=== PATIENT | female | born 1965 | race Caucasian/White ===

== ENCOUNTER → 2017-08-29 14:23 | Outpatient (CLI) | payer OTHER, SELFPAY ==
[2017-08-29 15:51] LABS: Thyroid Stimulating Hormone 1.81 uIU/mL (0.47-4.68)
== END ==
PROVIDERS: PCP Family Medicine; Visit Provider Internal Medicine
DX: E03.9 Hypothyroidism, unspecified (principal)
CPT/HCPCS: 36415; 84443

== ENCOUNTER 2019-09-17 19:36 | Emergency (ER) | payer OTHER, SELFPAY ==
[2019-09-17 19:40] VITALS: BP 134/100; PULSE 88; RESP 22; TEMP 36.2; O2SAT 100; BMI 22.3
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
[2019-09-17 21:09] LABS: Add Manual Diff / Slide Review NO; Basophils Absolute Auto 100 /uL (0-100); Basophils Percent Auto 1.4 % (0-2); Eosinophils Absolute Auto 100 /uL (0-450); Hematocrit 43.2 % (36-46); Hemoglobin 14.7 g/dL (12.0-16.0); Lymphocytes Absolute Auto 2400 /uL (1100-4500); Lymphocytes Percent Auto 38.7 % (25-40); Mean Corpuscular HGB Conc 34.1 % (30-36); Mean Corpuscular Hemoglobin 32.2 PG (26-34); Mean Corpuscular Volume 94.5 fL (80-100); Monocytes Absolute Auto 600 /uL (0-900); Monocytes Percent Auto 9.5 % (3-14); Neutrophils Absolute Auto 3000 /uL (1500-7000); Neutrophils Percent Auto 48.4 % (50-75); Platelet Count 270 X10^3/uL (150-400); Red Blood Cell Count 4.57 X10^6/uL (4.0-5.2); Red Cell Distribution Width 13.3 % (11.6-14.8); White Blood Cell Count 6.1 X10^3/uL (4.5-11.0)
[2019-09-17 21:25] VITALS: BP 130/88; PULSE 82; RESP 19; O2SAT 100
[2019-09-17 21:25] LABS: Alanine Aminotransferase 18 IU/L (<35); Albumin 4.6 g/dL (3.5-5.0); Albumin Globulin Ratio 1.5 (1.0-2.8); Alkaline Phosphatase 68 U/L (38-126); Aspartate Aminotransferase 31 IU/L (14-36); BUN Creatinine Ratio 22.2 (6-22); Bilirubin Total 0.6 mg/dL (0.2-1.3); Blood Urea Nitrogen 16 mg/dL (7-17); Calcium 9.6 mg/dL (8.4-10.2); Carbon Dioxide 28 mmol/L (22-32); Chloride 104 mmol/L (98-107); Estimated Glomerular Filt Rate > 60.0 mL/min (>60); Ethanol (ETOH) < 10 mg/dL; Glucose 90 mg/dL (70-100); HEMOLYSIS 44 (0-50); Sodium 139 mmol/L (137-145); Total Protein 7.6 g/dL (6.3-8.2)
[2019-09-17] MEDS: LORazepam 0.5 MG TABLET 1 MG PO (21:30)
[2019-09-17 21:43] LABS: UR Morphine/Opiate cutoff 300 Negative (Negative); Ur Creatinine Normal (Normal); Ur Specific Gravity Normal (Normal); Urine Amphetamines Negative (Negative); Urine Barbiturates Negative (Negative); Urine Benzodiazepines Positive (Negative); Urine Cocaine Negative (Negative); Urine MDMA Negative (Negative); Urine Methadone Negative (Negative); Urine Methamphetamines Negative (Negative); Urine Oxycodone Negative (Negative); Urine Phencyclidine Negative (Negative); Urine Tetrahydrocannabinol Negative (Negative); Urine Tricyclic Antidepressant Negative (Negative); Urine pH Normal (Normal)
[2019-09-17 21:56] LABS: Thyroid Stimulating Hormone 2.83 uIU/mL (0.47-4.68)
[2019-09-17 22:31] VITALS: BP 124/73; PULSE 62; RESP 16; O2SAT 96
[2019-09-18 07:38] VITALS: BP 116/61; PULSE 77; RESP 16; O2SAT 98
--- NOTE | 2019-09-18 12:23 | PC.NURSE ---
CUT OFF SAWYER SHINGLE MILL at bedside
--- NOTE | 2019-09-18 13:50 | PC.NURSE ---
Patient taking 0.25mg Alprazolam out of her own pill bottle. Ok per MD. Reports feeling more anxious after telling the whole story to WIRELESS COMMUNICATIONS ENGINEER. Water provided for patient. Friend Elinor at bedside.
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
[2019-09-18 15:11] VITALS: PULSE 75; O2SAT 97
[2019-09-18 15:12] VITALS: BP 167/105; PULSE 85; O2SAT 97
--- NOTE | 2019-09-18 15:17 | PC.NURSE ---
The patients friend came out to the nursing station saying that the patient is now feeling different and weird. She asked that we check her blood pressure. I went to check her vital signs and the patient had become emotional and upset, stating she had taken one of her medications, (alprazolam; which she has taken on and off for several years) a half hour before this episode. Patients blood pressure was elevated 167/105. Patient was very upset at this, saying she wanted to know what is in this bottle as she held up her prescription for Alprazolam. She stated that she knows that we all think she is crazy, and states she wants to figure out why this is happening to her. I assured her I would talk to the nurse, who went in to assess her shortly after I left.
--- NOTE | 2019-09-18 15:45 | PC.NURSE ---
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 States she does not feel right I know this sounds crazy but is there any way you can test this medication to tell me that this is for sure the medication that it says it is Patient was dispensed 10 tabs on 09/10/19 she has taken medications approx 8 times prior to today and has not felt off except today and two days ago. Patient feels there has been a shift in something in her because she has depended on this medication far more frequently than in the past. Patient is tearful. Friend Elinor at bedside. Patient repeatedly states i am not myself, I am in tune with my body normally Patient anxious, tearful. Reassured patient she is safe here and we are working on a plan to help her. Encouraged her continue to keep us posted on how she is feeling.
--- NOTE | 2019-09-18 16:57 | CM.SWNOTE ---
PLASTIC AND RECONSTRUCTIVE SURGEON note- UPDATE PLASTIC AND RECONSTRUCTIVE SURGEON received call from patient's Agustin. Agustin informed PLASTIC AND RECONSTRUCTIVE SURGEON that patient had been under significant stress for the past two years, and that in the past year she has experienced significant workplace stress. Agustin informed PLASTIC AND RECONSTRUCTIVE SURGEON that over the past two weeks, patient's presentation of stress has started to include a focus on technology, with a specific focus on her cell phone, and states that there has been an uncertainty in her mind[...]a conspiracy with regards to her cell phone. Agustin explained that on the drive from [employer] to [employer], patient would whisper into Agsutin's ear because she was worried that the technology in their car was listening to her, and that she would make notes in a notebook, but cover what she was writing with her hand because she felt the technology in her car was watching her. Agustin and PLASTIC AND RECONSTRUCTIVE SURGEON discussed next steps. PLASTIC AND RECONSTRUCTIVE SURGEON informs Agustin that PLASTIC AND RECONSTRUCTIVE SURGEON will present options to patient, and it this point it is recommendation of PLASTIC AND RECONSTRUCTIVE SURGEON that patient attend inpatient treatment for stabilization. Agustin indicates understanding, and requests follow up. PLASTIC AND RECONSTRUCTIVE SURGEON enters room. Patient is in room with friend Elinor. Patient describes taking her anti-anxiety medication and experiencing an increase in anxiety. Patient expresses worry that her medications have been tampered with, and acknowledges while stating this that this thought is irrational. PLASTIC AND RECONSTRUCTIVE SURGEON informs patient that he spoke with counselor and , and validates patient's experience of significant stress. Patient begins to escalate and explains that she is justice focused and that she believes this whole thing is engineered so he wins [he is identified as someone named Ed] and everyone thinks I'm crazy. PLASTIC AND RECONSTRUCTIVE SURGEON discusses patient's current experience of paranoia and patient indicates that it has escalated in the past two weeks specifically. Patient asks if it is normal for someone experiencing stress and paranoia to feel strongly that they are experiencing things when they're alone that other's aren't witnessing them. PLASTIC AND RECONSTRUCTIVE SURGEON discusses with patient that the feelings she is experiencing often do feel very real. PLASTIC AND RECONSTRUCTIVE SURGEON and patient next steps. Patient informs PLASTIC AND RECONSTRUCTIVE SURGEON that she will throw [her] phone in the ocean, and [she'll] be fine. Patient asks PLASTIC AND RECONSTRUCTIVE SURGEON for clinical recommendation. PLASTIC AND RECONSTRUCTIVE SURGEON informs patient that while throwing the phone in the ocean will likely be therapeutic, it is unlikely to address some of her stressors in the senior living. Patient states I agree. PLASTIC AND RECONSTRUCTIVE SURGEON discusses inpatient hospitalization, and patient expresses relief and states that sounds great. PLASTIC AND RECONSTRUCTIVE SURGEON and patient discuss logistics of this, and PLASTIC AND RECONSTRUCTIVE SURGEON exits room. PLASTIC AND RECONSTRUCTIVE SURGEON provides update to Dr. Verde and CASEY Carty. Pl: PLASTIC AND RECONSTRUCTIVE SURGEON to seek inpatient bed for patient and plan for transfer tonight. PLASTIC AND RECONSTRUCTIVE SURGEON will provide counselor and Agustin with update once bed has been secured. AYLEEN Mckinney
--- NOTE | 2019-09-18 16:58 | PC.NURSE ---
Per Collin ABBASI patient agreeable to voluntary inpatient hospitalization. VIDEO GAME DESIGNER working on voluntary placement for patient.
--- NOTE | 2019-09-18 17:51 | PC.NURSE ---
pt set up with towels for shower in bathroom. Pt agreed to being safe while in the bathroom alone and to keep the door unlocked. Pt is now back in her room.
--- NOTE | 2019-09-18 17:54 | CM.SWNOTE ---
KETTLE GIRL note KETTLE GIRL calls [facility] seeking inpatient bed for patient and speaks with Steve. KETTLE GIRL completes phone interview and Steve requests that KETTLE GIRL send over clinicals. Roughly 5 minutes after initial phone interview, Steve calls KETTLE GIRL back and informs KETTLE GIRL that patient has been accepted at [facility]. Details listed below: Accepting provider: Dr. Garret Floyd. Nurse to Nurse [phone]. Intake contact: Steve. Check in time: 2230 on 09/17. KETTLE GIRL provides update to patient, Dr. Verde and [facility]. [facility] to coordinate transportation. KETTLE GIRL contacts patient's counselor and and provides update. Pl: Patient to transfer to [facility] for inpatient behavioral health stabilization. AYLEEN Mckinney
--- NOTE | 2019-09-18 18:02 | PC.NURSE ---
Patient took a shower states she feels much better. Up in hallway on phone speaking to her mother I am already feeling so much better. My friends took the things that were causing me a paranoid episode. I promise you mom I am ok. I know no matter what happens there were things going on with my phone, but I will get a new one Remains calm and hopeful on phone with mother.
--- NOTE | 2019-09-18 18:27 | PC.NURSE ---
Food tray given to pt
[2019-09-18 19:15] VITALS: O2SAT 98
[2019-09-18 19:16] VITALS: BP 158/87
[2019-09-18 19:17] VITALS: PULSE 71
--- NOTE | 2019-09-18 19:30 | PC.NURSE ---
Report called to Mckayla PEÑA at [facility].
== END 2019-09-18 19:38 ==
PROVIDERS: Emergency Medicine; Emergency Provider Emergency Medicine; PCP Family Medicine
DX: F22 Delusional disorders (principal); F29 Unspecified psychosis not due to a substance or known physiological condition
CPT/HCPCS: 36415; 80053; 80305; 80320; 81003; 84443; 85025; 93005; 99284

== ENCOUNTER → 2020-10-29 13:39 | Outpatient (CLI) | payer OTHER, SELFPAY ==
[2020-10-29 14:51] LABS: Alanine Aminotransferase 24 IU/L (<35); Albumin 4.3 g/dL (3.5-5.0); Albumin Globulin Ratio 1.5 (1.0-2.8); Alkaline Phosphatase 84 U/L (38-126); Aspartate Aminotransferase 34 IU/L (14-36); BUN Creatinine Ratio 27.9 (6-22); Bilirubin Total 0.4 mg/dL (0.2-1.3); Blood Urea Nitrogen 17 mg/dL (7-17); Calcium 9.1 mg/dL (8.4-10.2); Carbon Dioxide 30 mmol/L (22-32); Chloride 100 mmol/L (98-107); Estimated Glomerular Filt Rate > 60.0 mL/min (>60); Globulin 2.8 g/dL (1.7-4.1); Glucose 81 mg/dL (70-100); HEMOLYSIS < 15 (0-50); Potassium 4.2 mmol/L (3.4-5.1); Sodium 134 mmol/L (137-145); Total Protein 7.1 g/dL (6.3-8.2)
[2020-10-29 16:13] LABS: TSH w/ Reflex to FT4 8.54 uIU/mL (0.47-4.68)
[2020-10-29 16:40] LABS: Free T4, Direct Thyroxine 0.67 ng/dL (0.78-2.19)
== END ==
PROVIDERS: PCP Family Medicine; Referring Provider Family Medicine; Visit Provider Family Medicine
DX: E03.9 Hypothyroidism, unspecified (principal); I10 Essential (primary) hypertension
CPT/HCPCS: 36415; 80053; 84439; 84443

== ENCOUNTER → 2020-11-08 10:15 | Outpatient (CLI) | payer OTHER, SELFPAY ==
--- NOTE | 2020-11-08 | DI.US.S_ITS ---
PROCEDURE: US PELVIC COMPLETE INDICATIONS: PMB TECHNIQUE: Real-time scanning was performed of the pelvic organs, with image documentation. Additional endovaginal scanning was necessary due to incomplete visualization of the adnexal and endometrial structures by transabdominal scanning. COMPARISON: None. FINDINGS: Uterus: Uterus is normal in size at 8.4 x 3.9 x 5.6 cm. The endometrium measures 7.2 mm in combined thickness. Ovaries: Normal right ovary at 3.1 x 1.4 x 1.9 cm and there is a simple right ovarian cyst measuring 16 mm. Left ovary not visualized. Other: No pathologic free abdominal or pelvic fluid. IMPRESSION: 1. Thickened endometrial complex measuring 7.2 mm. Endometrial biopsy is recommended to exclude underlying neoplastic process. 2. 16 mm right simple ovarian cyst. Dictated by: Hank Schwarz [facility] Interpreted: Erick Key MD on 11/09/2020 at 10:09 Transcribed by: BRIDGER on 11/09/2020 at 10:10 Approved by: Erick Key M.D. on 11/09/2020 at 10:50
== END ==
PROVIDERS: PCP Family Medicine; Referring Provider Family Medicine; Visit Provider Family Medicine
DX: N95.0 Postmenopausal bleeding (principal); N83.291 Other ovarian cyst, right side; R93.89 Abnormal findings on diagnostic imaging of other specified body structures
CPT/HCPCS: 76830; 76856

== ENCOUNTER → 2020-12-17 10:20 | Outpatient (CLI) | payer OTHER, SELFPAY ==
[2020-12-17 12:24] LABS: TSH w/ Reflex to FT4 0.53 uIU/mL (0.47-4.68)
== END ==
PROVIDERS: PCP Family Medicine; Referring Provider Family Medicine; Visit Provider Family Medicine
DX: E03.9 Hypothyroidism, unspecified (principal)
CPT/HCPCS: 36415; 84443

== ENCOUNTER → 2021-01-24 15:04 | Outpatient (CLI) | payer OTHER, SELFPAY ==
--- NOTE | 2021-02-17 16:58 | P.HOLT.S_ITS ---
Customer Care Specialist Report Referral & Results Date Patient Seen: 01/24/21 Requesting provider: Daily Alejandro Indication: Cardiomegaly Duration of monitoring (days): 14 Diary information: There were 20 patient triggered events and 9 patient diary entries Patient triggered events were variably associated with (within 45 seconds) sinus rhythm, PACs and SVT Patient diary events were variably associated with (within 45 seconds) sinus rhythm and PVCs Data: Minimum heart rate identified was 40 beats per minute at 06:44 on 01/27/2021 Maximum sinus heart rate was 146 beats per minute at 13:07 on 01/30/2021 Maximum overall heart rate was 154 beats per minute at 05:49 on 02/07/2021 during a 6 beat run of SVT/atrial tachycardia Less than 1% of identified beats were ventricular or supraventricular ectopic in origin, which would classify them as rare. There were 2 runs of SVT/atrial tachycardia with the fastest beat above also the longest 6 beats per minute Impression: 14 day vehicle monitor technician demonstrating very rare, very brief runs of SVT that may be symptomatic based on patient events No other serious dysrhythmia identified on this study
== END ==
PROVIDERS: PCP Family Medicine; Referring Provider Family Medicine; Visit Provider Family Medicine
DX: I51.7 Cardiomegaly (principal); Q24.4 Congenital subaortic stenosis
CPT/HCPCS: 36415; 84443; 93246; 93248

== ENCOUNTER 2023-06-21 06:48 | Emergency (ER) | payer OTHER, SELFPAY ==
[2023-06-21 06:50] VITALS: BP 141/84; PULSE 121; RESP 22; TEMP 36.8; O2SAT 97; BMI 24.7
--- NOTE | 2023-06-21 06:54 | ED_ITS ---
HPI - Psych <Anastasia Verde, - Last Filed: 06/22/23 07:03> General Chief Complaint: Psychiatric Symptoms Stated Complaint: psychotic episode Time Seen by Provider: 06/21/23 06:49 History of Present Illness HPI Narrative: Patient 58-year-old female with history of paranoid delusions depression presents today again with paranoia. She currently lives in [place] but lose used to live here. She called a friend emergently a couple days ago wanting to come up and visit. The friend picked her up from [place] last night at 8:30 a.m.. This morning patient felt very unsafe friend tried to calm her good and went to go get a cup of coffee when the patient went through a window and started running down the street. Patient says that she feels like someone is drugging her dog. She reports that over the last couple of weeks she has felt her emotions go up and down. She feels like somebody might be following her. She denies any suicidal or homicidal ideations. She does not feel like she needs a mental health hospitalization she just feels like she can stay safe with a friend. She does not want her called. She previously used to see Dr. Carvalho, she was hospitalized in 2019. Medications include venlafaxine, risperidone, levothyroxine After reviewing records from psychiatry symptoms seem similar to previous. She has had history of ongoing paranoia and depression. I spoke with friend serenity who reports that patient had an episode the airplane last night she got very upset patient recognized that this was abnormal behavior but was unable to control it. She confirms that patient went through the window this morning, she was unsure what to do police were called. Related Data Previous Rx's Medication Instructions Recorded lisinopril 20 mg tablet 20 mg PO QDAY #30 tabs 10/29/20 levothyroxine 88 mcg tablet 88 mcg PO DAILY #90 tabs 12/29/20 acupuncture #1 ea 01/26/21 massage therapy #1 ea 01/26/21 risperidone 1 mg tablet 2 mg (2 x 1 mg) PO BEDTIME #60 tabs 05/19/21 venlafaxine 225 mg tablet,extended 225 mg PO DAILY #30 tabs 05/19/21 release 24 hr Allergies Allergy/AdvReac Type Severity Reaction Status Date / Time No Known Drug Allergies Allergy Unknown Verified 02/28/21 08:16 Patient History <Anastasia Verde DO - Last Filed: 06/22/23 07:03> Medical History (Updated 06/21/23 @ 20:41 by Shobha Marley MD) 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 Dysthymia Irregular menstrual cycle Postmenopausal bleeding Delusions Hypertension (1997) Hypothyroidism (~1999) ADHD (attention deficit hyperactivity disorder) (2005) Anxiety (1997) Depression (1997) Surgical History Anesthesia Status post arthroscopy (1990) Family History Brother Age: 60 PTSD (post-traumatic stress disorder) History of heart disease Hypertension Mental health problem OCD (obsessive compulsive disorder) Father Age: 86 Cancer Hypertension High cholesterol History of heart disease Hyperlipidemia COPD (chronic obstructive pulmonary disease) Kidney failure Mother Age: 84 Hypertension High cholesterol History of heart disease Mental health problem Brother Intestinal disease Hypertension Mental health problem Sister Hypertension Multiple sclerosis Social History Smoking Status: Never smoker Smoking Status: Never smoker alcohol intake frequency: holidays/special occasions only Substance Use Type: does not use Exam <Anastasia Verde DO - Last Filed: 06/22/23 07:03> Initial Vital Signs Initial Vital Signs: Vital Signs Temperature 98.2 F 06/21/23 06:50 Pulse Rate 121 H 06/21/23 06:50 Respiratory Rate 22 06/21/23 06:50 Blood Pressure 141/84 H 06/21/23 06:50 Pulse Oximetry 97 06/21/23 06:50 Oxygen Delivery Method Room Air 06/21/23 06:50 GENERAL: Well-appearing, well-nourished and in no acute distress. CARDIOVASCULAR: peripheral pulses in tact, cap refill <2 sec RESPIRATORY: No respiratory distress, speaks in full sentences without difficulty [ABDOMEN: Soft, nontender, no guarding or rebound] EXTREMITIES: Normal range of motion, no clubbing or edema. Neurovascularly intact NEUROLOGICAL: Cranial nerves II through XII grossly intact. Normal gait and speech. SKIN: Warm, dry, no petechiae, no rashes or lesions. Psych Appearance: well kempt Speech and Movement: pressured speech Mood: paranoid Affect: sad Attitude: cooperative Thought Process: flight of ideas, illogical, loose association and perseverating Thought Content: hallucinations, no homicidality and suicidality Judgment: poor <Shobha Marley MD - Last Filed: 06/22/23 02:36> Initial Vital Signs Initial Vital Signs: Vital Signs Temperature 98.2 F 06/21/23 06:50 Pulse Rate 121 H 06/21/23 06:50 Respiratory Rate 22 06/21/23 06:50 Blood Pressure 141/84 H 06/21/23 06:50 Pulse Oximetry 97 06/21/23 06:50 Oxygen Delivery Method Room Air 06/21/23 06:50 Course <Anastasia Verde DO - Last Filed: 06/22/23 07:03> Orders Ordered: Discontinued Medications Diphtheria/Tetanus/Acell Pertussis (Tet,Diph,Pertuss(Acell),Vac/Pf 0.5 Ml Syringe) 0.5 ml IM .ONCE ONE Stop: 06/21/23 06:50 Last Admin: 06/21/23 17:20 Dose: Not Given Documented By: MPO Lisinopril (Lisinopril 20 Mg Tablet) 20 mg PO NOW ONE Stop: 06/21/23 16:43 Last Admin: 06/21/23 17:07 Dose: 20 mg Documented By: MPO Lorazepam (Lorazepam 0.5 Mg Tablet) 1 mg PO NOW ONE Stop: 06/21/23 07:12 Last Admin: 06/21/23 07:26 Dose: 1 mg Documented By: MPO Risperidone (Risperidone 1 Mg Tablet) 1 mg PO DAILY [facility] Risperidone (Risperidone 1 Mg Tablet) 1 mg PO DAILY FARHAT Last Admin: 06/21/23 17:10 Dose: 1 mg Documented By: MPO Vital Signs Vital signs: Vital Signs - 8 hr 06/21/23 20:09 Pulse Rate 71 Respiratory Rate 20 Blood Pressure 117/77 Pulse Oximetry 97 Oxygen Delivery Method Room Air <Shobha Marley MD - Last Filed: 06/22/23 02:36> Orders Ordered: Discontinued Medications Diphtheria/Tetanus/Acell Pertussis (Tet,Diph,Pertuss(Acell),Vac/Pf 0.5 Ml Syringe) 0.5 ml IM .ONCE ONE Stop: 06/21/23 06:50 Last Admin: 06/21/23 17:20 Dose: Not Given Documented By: MPO Lisinopril (Lisinopril 20 Mg Tablet) 20 mg PO NOW ONE Stop: 06/21/23 16:43 Last Admin: 06/21/23 17:07 Dose: 20 mg Documented By: LUCÍA Lorazepam (Lorazepam 0.5 Mg Tablet) 1 mg PO NOW ONE Stop: 06/21/23 07:12 Last Admin: 06/21/23 07:26 Dose: 1 mg Documented By: LUCÍA Risperidone (Risperidone 1 Mg Tablet) 1 mg PO DAILY FARHAT Risperidone (Risperidone 1 Mg Tablet) 1 mg PO DAILY FARHAT Last Admin: 06/21/23 17:10 Dose: 1 mg Documented By: LUCÍA Vital Signs Vital signs: Vital Signs - 8 hr 06/21/23 20:09 Pulse Rate 71 Respiratory Rate 20 Blood Pressure 117/77 Pulse Oximetry 97 Oxygen Delivery Method Room Air MDM - Psych <Anastasia Verde DO - Last Filed: 06/22/23 07:03> Lab Data 06/21/23 07:15 06/21/23 07:15 Labs: Lab Results 06/21/23 06/21/23 06/21/23 Range/Units 07:15 07:30 08:14 WBC 5.8 (4.5-11.0) X10^3/uL RBC 4.39 (4.0-5.2) X10^6/uL Hgb 13.8 (12.0-16.0) g/dL Hct 41.4 (36-46) % MCV 94.2 (80-100) fL MCH 31.5 (26-34) PG MCHC 33.4 (30-36) % RDW 13.1 (11.6-14.8) % Plt Count 242 (150-400) X10^3/uL Neut % (Auto) 63.1 (50-75) % Lymph % (Auto) 23.3 L (25-40) % [place] % (Auto) 10.0 (3-14) % Eos % (Auto) 2.8 (2-4) % Baso % (Auto) 0.8 (0-2) % Neut # (Auto) 3600 (6384-4659) /uL Lymph # (Auto) 1300 (7717-6605) /uL [place] # (Auto) 600 (0-900) /uL Eos # (Auto) 200 (0-450) /uL Baso # (Auto) 0 (0-100) /uL Sodium 138 (137-145) mmol/L Potassium 3.4 (3.4-5.1) mmol/L Chloride 105 (98-107) mmol/L Carbon Dioxide 26 (22-32) mmol/L BUN 14 (7-17) mg/dL Creatinine 0.78 (0.52-1.04) mg/dL Estimated GFR > 60 (>60) mL/min BUN/Creatinine Ratio 17.9 (6-22) Glucose 188 H (70-100) mg/dL Calcium 9.3 (8.4-10.2) mg/dL Total Bilirubin 0.9 (0.2-1.3) mg/dL AST 63 H (14-36) IU/L ALT 53 H (<35) IU/L Alkaline Phosphatase 81 (38-126) U/L Ammonia < 9 L (9-30) umol/L Total Protein 7.3 (6.3-8.2) g/dL Albumin 4.3 (3.5-5.0) g/dL Globulin 3.0 (1.7-4.1) g/dL Albumin/Globulin Ratio 1.4 (1.0-2.8) TSH 1.60 (0.47-4.68) uIU/mL Urine Color Yellow Urine Appearance Sl cloudy Urine pH 7.0 (4.5-8.0) Ur Specific [place] 1.020 (1.000-1.035) Urine Protein Negative (Negative) Urine Glucose (UA) Negative (Negative) g/dL Urine Ketones Negative (NEGATIVE) Urine Occult Blood Trace-intact (Negative) Urine Nitrate Negative (Negative) Urine Bilirubin Negative (NEGATIVE) Urine Urobilinogen 0.2 (0.2) E.U./dL Ur Leukocyte Esterase Negative (NEGATIVE) Urine RBC None seen (0-5/HPF) Urine WBC None seen (0-5/HPF) Ur Squamous Epith Cells 0-1 /hpf (0-5/HPF) Amorphous Sediment 1+ Urine Bacteria None seen (None) Ur Culture Indicated? Cult not indicated Vol Urine Centrifuged 10ml (spun) Salicylates < 1.0 (<20) mg/dL U Opiates 300ng/mL cut Negative (Negative) Ur Oxycodone Screen Negative (Negative) Urine Methadone Screen Negative (Negative) Acetaminophen < 10 (10-30) ug/mL Ur Barbiturates Screen Negative (Negative) U Tricyclic Antidepress Negative (Negative) Ur Phencyclidine Scrn Negative (Negative) Ur Amphetamines Screen Negative (Negative) U Methamphetamines Scrn Negative (Negative) Ur MDMA Scrn (Ecstasy) Negative (Negative) U Benzodiazepines Scrn Negative (Negative) Urine Cocaine Screen Negative (Negative) U Marijuana (THC) Screen Negative (Negative) Urine Specific [place] (Normal) Ethyl Alcohol < 10 ( - 10) mg/dL Ur Creatinine (Normal) SARS-CoV-2 (PCR) Negative (Negative) 06/21/23 Range/Units 08:14 WBC (4.5-11.0) X10^3/uL RBC (4.0-5.2) X10^6/uL Hgb (12.0-16.0) g/dL Hct (36-46) % MCV (80-100) fL MCH (26-34) PG MCHC (30-36) % RDW (11.6-14.8) % Plt Count (150-400) X10^3/uL Neut % (Auto) (50-75) % Lymph % (Auto) (25-40) % [place] % (Auto) (3-14) % Eos % (Auto) (2-4) % Baso % (Auto) (0-2) % Neut # (Auto) (1680-7164) /uL Lymph # (Auto) (9500-4665) /uL [place] # (Auto) (0-900) /uL Eos # (Auto) (0-450) /uL Baso # (Auto) (0-100) /uL Sodium (137-145) mmol/L Potassium (3.4-5.1) mmol/L Chloride (98-107) mmol/L Carbon Dioxide (22-32) mmol/L BUN (7-17) mg/dL Creatinine (0.52-1.04) mg/dL Estimated GFR (>60) mL/min BUN/Creatinine Ratio (6-22) Glucose (70-100) mg/dL Calcium (8.4-10.2) mg/dL Total Bilirubin (0.2-1.3) mg/dL AST (14-36) IU/L ALT (<35) IU/L Alkaline Phosphatase (38-126) U/L Ammonia (9-30) umol/L Total Protein (6.3-8.2) g/dL Albumin (3.5-5.0) g/dL Globulin (1.7-4.1) g/dL Albumin/Globulin Ratio (1.0-2.8) TSH (0.47-4.68) uIU/mL Urine Color Urine Appearance Urine pH Normal (4.5-8.0) Ur Specific [place] (1.000-1.035) Urine Protein (Negative) Urine Glucose (UA) (Negative) g/dL Urine Ketones (NEGATIVE) Urine Occult Blood (Negative) Urine Nitrate (Negative) Urine Bilirubin (NEGATIVE) Urine Urobilinogen (0.2) E.U./dL Ur Leukocyte Esterase (NEGATIVE) Urine RBC (0-5/HPF) Urine WBC (0-5/HPF) Ur Squamous Epith Cells (0-5/HPF) Amorphous Sediment Urine Bacteria (None) Ur Culture Indicated? Vol Urine Centrifuged Salicylates (<20) mg/dL U Opiates 300ng/mL cut (Negative) Ur Oxycodone Screen (Negative) Urine Methadone Screen (Negative) Acetaminophen (10-30) ug/mL Ur Barbiturates Screen (Negative) U Tricyclic Antidepress (Negative) Ur Phencyclidine Scrn (Negative) Ur Amphetamines Screen (Negative) U Methamphetamines Scrn (Negative) Ur MDMA Scrn (Ecstasy) (Negative) U Benzodiazepines Scrn (Negative) Urine Cocaine Screen (Negative) U Marijuana (THC) Screen (Negative) Urine Specific [place] Normal (Normal) Ethyl Alcohol ( - 10) mg/dL Ur Creatinine Normal (Normal) SARS-CoV-2 (PCR) (Negative) [facility] Narrative Medical decision making narrative: Patient 58-year-old female presenting today with paranoia. This has happened to her in the past. It sounds as though it is escalating quite a bit. She seems unsafe she ran out of the house through a window without any warning. She was found walking on a street yelling help. Blood work has been reviewed Patient is medically cleared Patient is currently voluntary <Shobha Marley MD - Last Filed: 06/22/23 02:36> Lab Data Labs: Lab Results 06/21/23 06/21/23 06/21/23 Range/Units 07:15 07:30 08:14 WBC 5.8 (4.5-11.0) X10^3/uL RBC 4.39 (4.0-5.2) X10^6/uL Hgb 13.8 (12.0-16.0) g/dL Hct 41.4 (36-46) % MCV 94.2 (80-100) fL MCH 31.5 (26-34) PG MCHC 33.4 (30-36) % RDW 13.1 (11.6-14.8) % Plt Count 242 (150-400) X10^3/uL Neut % (Auto) 63.1 (50-75) % Lymph % (Auto) 23.3 L (25-40) % [place] % (Auto) 10.0 (3-14) % Eos % (Auto) 2.8 (2-4) % Baso % (Auto) 0.8 (0-2) % Neut # (Auto) 3600 (7174-0948) /uL Lymph # (Auto) 1300 (1216-4726) /uL [place] # (Auto) 600 (0-900) /uL Eos # (Auto) 200 (0-450) /uL Baso # (Auto) 0 (0-100) /uL Sodium 138 (137-145) mmol/L Potassium 3.4 (3.4-5.1) mmol/L Chloride 105 (98-107) mmol/L Carbon Dioxide 26 (22-32) mmol/L BUN 14 (7-17) mg/dL Creatinine 0.78 (0.52-1.04) mg/dL Estimated GFR > 60 (>60) mL/min BUN/Creatinine Ratio 17.9 (6-22) Glucose 188 H (70-100) mg/dL Calcium 9.3 (8.4-10.2) mg/dL Total Bilirubin 0.9 (0.2-1.3) mg/dL AST 63 H (14-36) IU/L ALT 53 H (<35) IU/L Alkaline Phosphatase 81 (38-126) U/L Ammonia < 9 L (9-30) umol/L Total Protein 7.3 (6.3-8.2) g/dL Albumin 4.3 (3.5-5.0) g/dL Globulin 3.0 (1.7-4.1) g/dL Albumin/Globulin Ratio 1.4 (1.0-2.8) TSH 1.60 (0.47-4.68) uIU/mL Urine Color Yellow Urine Appearance Sl cloudy Urine pH 7.0 (4.5-8.0) Ur Specific [place] 1.020 (1.000-1.035) Urine Protein Negative (Negative) Urine Glucose (UA) Negative (Negative) g/dL Urine Ketones Negative (NEGATIVE) Urine Occult Blood Trace-intact (Negative) Urine Nitrate Negative (Negative) Urine Bilirubin Negative (NEGATIVE) Urine Urobilinogen 0.2 (0.2) E.U./dL Ur Leukocyte Esterase Negative (NEGATIVE) Urine RBC None seen (0-5/HPF) Urine WBC None seen (0-5/HPF) Ur Squamous Epith Cells 0-1 /hpf (0-5/HPF) Amorphous Sediment 1+ Urine Bacteria None seen (None) Ur Culture Indicated? Cult not indicated Vol Urine Centrifuged 10ml (spun) Salicylates < 1.0 (<20) mg/dL U Opiates 300ng/mL cut Negative (Negative) Ur Oxycodone Screen Negative (Negative) Urine Methadone Screen Negative (Negative) Acetaminophen < 10 (10-30) ug/mL Ur Barbiturates Screen Negative (Negative) U Tricyclic Antidepress Negative (Negative) Ur Phencyclidine Scrn Negative (Negative) Ur Amphetamines Screen Negative (Negative) U Methamphetamines Scrn Negative (Negative) Ur MDMA Scrn (Ecstasy) Negative (Negative) U Benzodiazepines Scrn Negative (Negative) Urine Cocaine Screen Negative (Negative) U Marijuana (THC) Screen Negative (Negative) Urine Specific [place] (Normal) Ethyl Alcohol < 10 ( - 10) mg/dL Ur Creatinine (Normal) SARS-CoV-2 (PCR) Negative (Negative) 06/21/23 Range/Units 08:14 WBC (4.5-11.0) X10^3/uL RBC (4.0-5.2) X10^6/uL Hgb (12.0-16.0) g/dL Hct (36-46) % MCV (80-100) fL MCH (26-34) PG MCHC (30-36) % RDW (11.6-14.8) % Plt Count (150-400) X10^3/uL Neut % (Auto) (50-75) % Lymph % (Auto) (25-40) % [place] % (Auto) (3-14) % Eos % (Auto) (2-4) % Baso % (Auto) (0-2) % Neut # (Auto) (6000-0416) /uL Lymph # (Auto) (1655-0311) /uL [place] # (Auto) (0-900) /uL Eos # (Auto) (0-450) /uL Baso # (Auto) (0-100) /uL Sodium (137-145) mmol/L Potassium (3.4-5.1) mmol/L Chloride (98-107) mmol/L Carbon Dioxide (22-32) mmol/L BUN (7-17) mg/dL Creatinine (0.52-1.04) mg/dL Estimated GFR (>60) mL/min BUN/Creatinine Ratio (6-22) Glucose (70-100) mg/dL Calcium (8.4-10.2) mg/dL Total Bilirubin (0.2-1.3) mg/dL AST (14-36) IU/L ALT (<35) IU/L Alkaline Phosphatase (38-126) U/L Ammonia (9-30) umol/L Total Protein (6.3-8.2) g/dL Albumin (3.5-5.0) g/dL Globulin (1.7-4.1) g/dL Albumin/Globulin Ratio (1.0-2.8) TSH (0.47-4.68) uIU/mL Urine Color Urine Appearance Urine pH Normal (4.5-8.0) Ur Specific [place] (1.000-1.035) Urine Protein (Negative) Urine Glucose (UA) (Negative) g/dL Urine Ketones (NEGATIVE) Urine Occult Blood (Negative) Urine Nitrate (Negative) Urine Bilirubin (NEGATIVE) Urine Urobilinogen (0.2) E.U./dL Ur Leukocyte Esterase (NEGATIVE) Urine RBC (0-5/HPF) Urine WBC (0-5/HPF) Ur Squamous Epith Cells (0-5/HPF) Amorphous Sediment Urine Bacteria (None) Ur Culture Indicated? Vol Urine Centrifuged Salicylates (<20) mg/dL U Opiates 300ng/mL cut (Negative) Ur Oxycodone Screen (Negative) Urine Methadone Screen (Negative) Acetaminophen (10-30) ug/mL Ur Barbiturates Screen (Negative) U Tricyclic Antidepress (Negative) Ur Phencyclidine Scrn (Negative) Ur Amphetamines Screen (Negative) U Methamphetamines Scrn (Negative) Ur MDMA Scrn (Ecstasy) (Negative) U Benzodiazepines Scrn (Negative) Urine Cocaine Screen (Negative) U Marijuana (THC) Screen (Negative) Urine Specific [place] Normal (Normal) Ethyl Alcohol ( - 10) mg/dL Ur Creatinine Normal (Normal) SARS-CoV-2 (PCR) (Negative) MDM Narrative Medical decision making narrative: Patient 58-year-old female presenting today with paranoia. This has happened to her in the past. It sounds as though it is escalating quite a bit. She seems unsafe she ran out of the house through a window without any warning. She was found walking on a street yelling help. Blood work has been reviewed Patient is medically cleared Patient is currently voluntary [facility] for transport to psychiatric facility in stable condition Discharge Plan Departure Patient Disposition: Xfer Psychiatric Hosp Clinical Impression: Paranoia Prescriptions: No Action venlafaxine 225 mg tablet extended release 24hr 225 mg PO DAILY Qty: 30 3RF risperidone 1 mg tablet 2 mg PO BEDTIME Qty: 60 3RF levothyroxine 88 mcg tablet 88 mcg PO DAILY Qty: 90 3RF (DME) massage therapy See Rx Instructions .Route .MEDSUPPLY Qty: 1 0RF Rx Instructions: As directed (DME) acupuncture See Rx Instructions .Route .MEDSUPPLY Qty: 1 0RF Rx Instructions: As directed lisinopril 20 mg tablet 20 mg PO QDAY Qty: 30 11RF Referrals: Daily Alejandro DO [Primary Care Provider] - Stand Alone Forms: Patient Portal/API
[2023-06-21] MEDS: LORazepam 0.5 MG TABLET 1 MG PO (07:26)
[2023-06-21 07:31] LABS: Add Manual Diff / Slide Review NO; Basophils Absolute Auto 0 /uL (0-100); Basophils Percent Auto 0.8 % (0-2); Eosinophils Absolute Auto 200 /uL (0-450); Eosinophils Percent Auto 2.8 % (2-4); Hematocrit 41.4 % (36-46); Hemoglobin 13.8 g/dL (12.0-16.0); Lymphocytes Absolute Auto 1300 /uL (1100-4500); Lymphocytes Percent Auto 23.3 % (25-40); Mean Corpuscular HGB Conc 33.4 % (30-36); Mean Corpuscular Hemoglobin 31.5 PG (26-34); Mean Corpuscular Volume 94.2 fL (80-100); Monocytes Absolute Auto 600 /uL (0-900); Neutrophils Absolute Auto 3600 /uL (1500-7000); Neutrophils Percent Auto 63.1 % (50-75); Platelet Count 242 X10^3/uL (150-400); Red Blood Cell Count 4.39 X10^6/uL (4.0-5.2); Red Cell Distribution Width 13.1 % (11.6-14.8); White Blood Cell Count 5.8 X10^3/uL (4.5-11.0)
--- NOTE | 2023-06-21 07:42 | PC.NURSE ---
VENDING MACHINE FILLER Note: Attempted to obtain a urine sample, patient willingly tried and then came out of the bathroom and asked is there a drug that makes you feel like you need to go but cannot? I feel like I need to go to the bathroom but I can't I told the patient that I would not know about any drugs and that it was okay to try and get the sample again in a little bit.
[2023-06-21 07:43] LABS: Ammonia (NH3) < 9 umol/L (9-30)
[2023-06-21 07:44] LABS: Acetaminophen < 10 ug/mL (10-30); Alanine Aminotransferase 53 IU/L (<35); Albumin 4.3 g/dL (3.5-5.0); Albumin Globulin Ratio 1.4 (1.0-2.8); Alkaline Phosphatase 81 U/L (38-126); Aspartate Aminotransferase 63 IU/L (14-36); BUN Creatinine Ratio 17.9 (6-22); Bilirubin Total 0.9 mg/dL (0.2-1.3); Blood Urea Nitrogen 14 mg/dL (7-17); Calcium 9.3 mg/dL (8.4-10.2); Carbon Dioxide 26 mmol/L (22-32); Chloride 105 mmol/L (98-107); Estimated Glomerular Filt Rate > 60 mL/min (>60); Glucose 188 mg/dL (70-100); HEMOLYSIS < 15 (0-50); Potassium 3.4 mmol/L (3.4-5.1); Sodium 138 mmol/L (137-145); Total Protein 7.3 g/dL (6.3-8.2)
[2023-06-21 07:45] LABS: Ethanol (ETOH) < 10 mg/dL; Salicylate < 1.0 mg/dL (<20)
[2023-06-21 07:49] LABS: COVID19 -Nasal RAPID Negative (Negative)
--- NOTE | 2023-06-21 07:54 | PC.NURSE ---
INK TECHNICIAN NOTE: Patient asked How am I supposed to feel when I know I'm not having a psychotic episode but everything I say makes it sound like I am. It just feels like I'm in one of those big screen movies right now.
[2023-06-21 08:20] LABS: Appearance Urine UA SL CLOUDY; Bilirubin Urine UA NEGATIVE (NEGATIVE); Color Urine UA YELLOW; Glucose Urine UA NEGATIVE (Negative); Ketones Urine UA NEGATIVE (NEGATIVE); Leukocyte Esterase Urine UA NEGATIVE (NEGATIVE); Nitrite Urine UA NEGATIVE (Negative); Occult Blood Urine UA TRACE-INTACT (Negative); Protein Urine UA NEGATIVE (Negative); Urobilinogen Urine UA 0.2 E.U./dL (0.2)
[2023-06-21 08:25] LABS: UR Morphine/Opiate cutoff 300 Negative (Negative); Ur Creatinine Normal (Normal); Ur Specific Gravity Normal (Normal); Urine Amphetamines Negative (Negative); Urine Barbiturates Negative (Negative); Urine Benzodiazepines Negative (Negative); Urine Cocaine Negative (Negative); Urine MDMA Negative (Negative); Urine Methadone Negative (Negative); Urine Methamphetamines Negative (Negative); Urine Oxycodone Negative (Negative); Urine Phencyclidine Negative (Negative); Urine Tetrahydrocannabinol Negative (Negative); Urine Tricyclic Antidepressant Negative (Negative); Urine pH Normal (Normal)
[2023-06-21 08:28] LABS: Amorphous Sediment Urine 1+; Bacteria Urine None Seen; Culture Indicated Urine Cult Not Indicated; RBC Urine None Seen (0-5/HPF); Squamous Epithelial Cell Urine 0-1 /HPF (0-5/HPF); Urine Volume 10mL (spun); WBC Urine None Seen (0-5/HPF)
--- NOTE | 2023-06-21 08:36 | PC.NURSE ---
Pt brought to ED today by [facility] because she jumped out her friend's 1st story window and began to run down the street. Pt states that she feels as though someone is trying to drug her and her dog because she woke up early this morning and her dog was shaking. Pt is unsure of who might want to poison or drug her, but she believes it happened in [place]. Pt affect is tearful and anxious. Pt a&ox4 and able to answer all questions appropriately. States that she has had psychotic episodes in the past. [facility] at bedside. Pt states that she does not want to seek inpatient treatment at this time.
--- NOTE | 2023-06-21 10:01 | PC.NURSE ---
HANDS ASSEMBLER Note: patient is calm, quiet, and sleeping.
[2023-06-21 11:32] VITALS: BP 123/68; PULSE 105; RESP 16; O2SAT 97
--- NOTE | 2023-06-21 11:34 | PC.NURSE ---
MAIL ORDER BILLER Note: Patient sat up from sleep and started asking What is going on? how do I go about getting food. To calm patient I offered snacks from the ED and a meal try for lunch and patient agreed.
--- NOTE | 2023-06-21 11:47 | PC.NURSE ---
HOUSEKEEPER AND LAUNDRY ASSISTANT Note: Pt with COLD ROLL CATCHER
--- NOTE | 2023-06-21 12:42 | PC.NURSE ---
FOREST FIRE EQUIPMENT OPERATOR Note: Patient got very tearful and upset when she overheard her nurse updating patients family. Patient asked to speak with who was on the phone which was her . A phone was provided so she could call and speak with him.
--- NOTE | 2023-06-21 13:09 | PC.NURSE ---
Pt awake and alert visiting with friend, Katia. Pt states that she has a lot of things that are upsetting her but did not wish to talk about them at the time of reassessment. Pt tearful and concerned about her dog and wants dog to come to ED. Pt advised that only service dogs in the ED and pt became upset. Overall demeanor remains tearful and anxious but pt growing slightly more agitated at this time. Pt is compliant and easily redirectable. Pt spoke with HAND INSERTER OPERATOR regadring inpatient mental health treatment.
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
--- NOTE | 2023-06-21 13:15 | PC.NURSE ---
FIXED WING PILOT Note: Patient is sitting in bed talking with friend Katia
[2023-06-21 14:40] VITALS: BP 114/73; PULSE 97; RESP 12; O2SAT 98
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
[2023-06-21 17:07] VITALS: BP 129/80; PULSE 97
[2023-06-21] MEDS: lisinopriL 20 MG TABLET PO (17:07)
[2023-06-21] MEDS: risperiDONE 1 MG TABLET PO (17:10)
--- NOTE | 2023-06-21 17:19 | CM.SWNOTE ---
ED LEAD OXIDE MILL TENDER Note LEAD OXIDE MILL TENDER calls [facility] and speaks with Lauryn, it is reported that they have beds and can review patient. Lauryn reports that patient is accepted by Dr. Ariel Floyd, with ETA of after 2100. ground layer calls [facility] to set up transport for 2014. LEAD OXIDE MILL TENDER calls [facility] and informs them of transport. With patient consent, LEAD OXIDE MILL TENDER calls patient's therapist Neha Dale MA, [facility] (Ph. # [phone]) LEAD OXIDE MILL TENDER provides information on patient's transfer to [facility]. Neha endorses she has noticed patient's a change in patient's behavior and identified the beginning of the psychotic episode and encouraged patient to schedule appt with Psychiatrist to start Risperidone. Neha states that patient was hesitant at first to start taking new rx. With patient consent, LEAD OXIDE MILL TENDER calls patient's Psychiatrist office [facility] in [place], [place] to leave message for Psychiatrist Dr. Ofe Holland (Ph. # [phone]). LEAD OXIDE MILL TENDER informs staff of patient's transfer to [facility] for inpatient tx. LEAD OXIDE MILL TENDER provides phone number if they have any further questions. Patient indicates agreement and understanding for voluntary transfer to tx at [facility]. Patient endorses she will inform her and friends. Plan: Patient to transfer to [facility] for voluntary inpatient hospitalization this evening via BLS. ISAC Jaramillo
[2023-06-21 20:09] VITALS: BP 117/77; PULSE 71; RESP 20; O2SAT 97
== END 2023-06-21 20:20 ==
PROVIDERS: Emergency Medicine; Emergency Provider Emergency Medicine; PCP Family Medicine
DX: F22 Delusional disorders (principal); Z20.822 Contact with and (suspected) exposure to COVID-19
CPT/HCPCS: 36415; 80053; 80305; 80320; 80329; 81001; 82140; 84443; 85025; 87635; 99284; G0480